=== PATIENT | male | born 1990 | race Two or more races ===

== ENCOUNTER 2021-12-24 16:53 | Emergency (ER) | payer MEDICAID ==
[~2021-12-24] VITALS: Ht 188 cm; Wt 145.4 kg
[2021-12-24 16:58] VITALS: BP 161/88
== END 2021-12-24 18:30 | disposition home or self-care (01) ==
LOC: EMS 16:53
DX: J34.0 Abscess, furuncle and carbuncle of nose (principal); F14.10 Cocaine abuse, uncomplicated; F17.210 Nicotine dependence, cigarettes, uncomplicated
CPT/HCPCS: 99281; Z7502

== ENCOUNTER → 2024-10-21 | Emergency (ER) | payer MEDICAID, OTHER ==
[~2024-10-21] VITALS: Ht 188 cm; Wt 181.8 kg
[~2024-10-21] MED LIST: LISI-893 PO
[2024-10-21 12:01] VITALS: TEMP 97.9
[2024-10-21 12:30] LABS: EOSINOPHILS % (AUTO) 1.3 % (1.0-6.0); HEMATOCRIT 43.2 % (41-53); HEMOGLOBIN 14.1 g/dL (13.5-17.5); LYMPHOCYTES # (AUTO) 1.8 K/uL (1.0-4.8); LYMPHOCYTES % (AUTO) 22.5 % (22.0-44.0); MEAN CORPUSCULAR HEMOGLOBIN 29.3 pg (26.0-34.0); MEAN CORPUSCULAR HGB CONC 32.6 G/dL (31.0-37.0); MEAN CORPUSCULAR VOLUME 90 fL (80-100); MONOCYTES # (AUTO) 0.4 K/uL (0.1-1.0); MONOCYTES % (AUTO) 5.6 % (2.0-9.0); NEUTROPHILS # (AUTO) 5.6 K/uL (1.8-7.7); NEUTROPHILS % (AUTO) 69.6 % (40.0-70.0); PLATELET COUNT (AUTO) 267 K/uL (150-450); RED BLOOD CELL COUNT(AUTO) 4.81 MIL/uL (4.50-5.90)
[2024-10-21 12:47] LABS: ANION GAP 9 mmol/L (8-16); CALCIUM, TOTAL 8.8 mg/dL (8.8-10.5); CARBON DIOXIDE 26 mmol/L (22-29); CHLORIDE 101 mmol/L (98-107); CREATININE 1.05 mg/dL (0.60-1.30); GLOMERULAR FILTR. RATE CALC > 60 mL/min (>60); GLUCOSE,RANDOM 267 mg/dL (70-110); SODIUM SERUM 136 mmol/L (136-145); UREA NITROGEN, BLOOD 9 mg/dL (7-18)
[2024-10-21 12:49] LABS: TROPONIN I-HIGH SENSITIVITY 5 ng/L (<76)
[2024-10-21 14:09] VITALS: BP 136/66; PULSE 84; RESP 18; O2SAT 99
== END | disposition still patient (30) ==
LOC: EMS 11:55
DX: I10 Essential (primary) hypertension (principal); R73.9 Hyperglycemia, unspecified; F17.210 Nicotine dependence, cigarettes, uncomplicated
CPT/HCPCS: 80048; 84484; 85025; 93005; 99284